=== PATIENT | male | born 1985 | race Caucasian/White ===

== ENCOUNTER 2018-09-29 23:16 | Emergency (ER) | payer OTHER ==
[~2018-09-29] VITALS: Ht 167.6 cm; Wt 72.6 kg
[2018-09-29] MEDS ORDERED: SYNTHROID50 MCG (23:40)
[2018-09-30] MEDS ORDERED: ZITHROMAX TRI-500 MG PO (11:37)
[2018-09-30] MEDS ORDERED: TUSSI PRES-B L120 M1 PO (11:39)
== END 2018-09-30 11:20 | disposition home or self-care (01) ==
LOC: ER 23:16
DX: R22.0 Localized swelling, mass and lump, head (principal)

== ENCOUNTER 2018-10-01 10:11 | Outpatient (CLI) | payer OTHER ==
[~2018-10-01 10:11] MED LIST: SYNTHROID50 MCG; TUSSI PRES-B L120 M1 PO; ZITHROMAX TRI-500 MG PO
== END 2018-10-01 10:13 | disposition home or self-care (01) ==
LOC: SONOGRAMA 10:11
DX: C07 Malignant neoplasm of parotid gland (principal)

== ENCOUNTER 2018-10-12 08:42 | Outpatient (CLI) | payer OTHER | END 2018-10-12 08:53 | disposition home or self-care (01) | LOC: MRI 08:42 | DX: G93.89 Other specified disorders of brain (principal); R90.0 Intracranial space-occupying lesion found on diagnostic imaging of central nervous system | CPT/HCPCS: 70553 ==